=== PATIENT | female | born 1940 | race Hispanic/Latino ===

== ENCOUNTER 2019-01-02 09:30 | Inpatient (IN) | payer MEDICARE ==
[2019-01-02 10:12] LABS: Hematocrit 36.2 % (30.3-42.9); Hemoglobin 12.6 gm/dl (10.1-14.3); Mean Corpuscular HGB Conc 35 % (30-34); Mean Corpuscular Volume 92 fl (79-97); Platelet Count 194 K/mm3 (140-440); Red Blood Count 3.96 M/mm3 (3.65-5.03); Red Cell Distribution Width 13.2 % (13.2-15.2)
[2019-01-02 10:22] LABS: INR 0.87 (0.87-1.13)
--- NOTE | 2019-01-02 10:26 | Emergency Department Report ---
ED Neuro Deficit HPI - General Chief Complaint: Altered Mental Status Stated Complaint: AMS Time Seen by Provider: 01/02/19 10:01 Source: EMS Mode of arrival: Stretcher Limitations: Altered Mental Status - History of Present Illness Initial Comments: Mrs. Osman is a 78 yo female with hx of HTN, TIA, dyslipidemia and seizure disorder who presents with altered mental status and possible seizure. Last known normal 800 AM. Bel, daughter, at bedside provided majority of hx. Daughter noted that she was on the computer, searching the internet. Then she began to wander around the home. She then held on to the counter appearing to be in distress. She was standing but not responsive. Patient then went to the bed. Bel stated that she appeared "catatonic" with frothy sputum at the edge of her mouth. She then developed sonorous respirations. Once she awakened, Mrs. Paulino seemed child-like, confused. Speaking Bel[place]ian although bilingual. Slurred speech noticed by daughter and EMS. BP 210/130. No seizure activity observed by daughter. Patient recently moved from [facility] to be with her daughter in [place]. Daughter Bel is a OR microbiology technician at [employer]. Mrs. Graf does not remember the events which occurred. Medications: Losartan Keppra Amlodipine Toviaz HCTZ Metoprolol Omeprazole -: Sudden, This morning Location: altered Presenting Symptoms: Present: Unable to Speak Clearly Place: home Severity: severe Improves With: none Worsens With: time On Anticoagulants: No Context: sudden onset Associated Symptoms: confusion, syncope Treatments Prior to Arrival: oxygen - Related Data Home Medications: Home Medications Medication Instructions Recorded Confirmed Last Taken Fesoterodine Fumarate ER [Toviaz 8 mg PO DAILY 01/02/19 01/02/19 Unknown ER] Losartan [Cozaar] 50 mg PO QDAY 01/02/19 01/02/19 Unknown Metoprolol Succinate [Toprol Xl] 50 mg PO DAILY 01/02/19 01/02/19 Unknown Omeprazole 20 mg PO DAILY 01/02/19 01/02/19 Unknown amLODIPine [Norvasc] 10 mg PO DAILY 01/02/19 01/02/19 Unknown hydroCHLOROthiazide [HCTZ] 25 mg PO QDAY 01/02/19 01/02/19 Unknown levETIRAcetam [Keppra] 500 mg PO BID 01/02/19 01/02/19 Unknown Allergies/Adverse Reactions: Allergies Allergy/AdvReac Type Severity Reaction Status Date / Time No Known Allergies Allergy Unverified 01/02/19 09:40 ED Review of Systems ROS: Stated complaint: AMS Other details as noted in HPI Comment: All other systems reviewed and negative Constitutional: denies: fever, malaise Cardiovascular: denies: chest pain Gastrointestinal: denies: abdominal pain ED Past Medical Hx - Past Medical History Previous Medical History?: Yes Hx Hypertension: Yes Hx CVA: Yes (TIA) Hx Seizures: Yes Additional medical history: TIA 2015 - Surgical History Additional Surgical History: vein stripping, hemorrhoidectomy, laparoscopic knee surgery - Family History Family history: other (noncontributory) - Social History Smoking Status: Unknown if ever smoked Substance Use Type: None Other Social History: worked until last year, 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 [employer] - Medications Home Medications: Home Medications Medication Instructions Recorded Confirmed Last Taken Type Fesoterodine Fumarate ER [Toviaz 8 mg PO DAILY 01/02/19 01/02/19 Unknown History ER] Losartan [Cozaar] 50 mg PO QDAY 01/02/19 01/02/19 Unknown History Metoprolol Succinate [Toprol Xl] 50 mg PO DAILY 01/02/19 01/02/19 Unknown History Omeprazole 20 mg PO DAILY 01/02/19 01/02/19 Unknown History amLODIPine [Norvasc] 10 mg PO DAILY 01/02/19 01/02/19 Unknown History hydroCHLOROthiazide [HCTZ] 25 mg PO QDAY 01/02/19 01/02/19 Unknown History levETIRAcetam [Keppra] 500 mg PO BID 01/02/19 01/02/19 Unknown History ED Neuro Physical Exam - General Limitations: Altered Mental Status General appearance: alert, in no apparent distress Suspected Stroke: No - Head Head exam: Present: atraumatic, normocephalic - Eye Eye exam: Present: normal appearance - ENT ENT exam: Present: mucous membranes moist - Neck Neck exam: Present: normal inspection, full ROM. Absent: tenderness, meningismus - Respiratory Respiratory exam: Present: normal lung sounds bilaterally. Absent: respiratory distress, wheezes, rales, rhonchi - Cardiovascular Cardiovascular Exam: Present: regular rate, normal rhythm, normal heart sounds. Absent: systolic murmur, diastolic murmur, rubs, gallop - GI/Abdominal GI/Abdominal exam: Present: soft, normal bowel sounds. Absent: distended, tenderness, guarding, rebound - Extremities Exam Extremities exam: Present: normal inspection - Back Exam Back exam: Present: normal inspection - Neurological Exam Neurological exam: Present: alert, oriented X3 - NIHSS Assessment Interval: Baseline 1a. Level of Consciousness: alert/keenly responsive 1b. LOC Questions: answers both correctly 1c. LOC Commands: performs tasks correctly 2. Best Gaze: normal 3. Visual: no visual loss 4. Facial Palsy: normal symmetrical movement 5b. Motor Arm Right: no drift 5a. Motor Arm Left: no drift 6a. Motor Leg Left: no drift 6b. Motor Leg Right: no drift 7. Limb Ataxia: absent 8. Sensory: normal 9. Best Language: no aphasia 10. Dysarthria: normal 11. Extinction/Inattention: no abnormality Total Score: 0 Stroke Severity: No Stroke Symptoms - Psychiatric Psychiatric exam: Present: normal affect, normal mood - Skin Skin exam: Present: warm, dry, intact, normal color. Absent: rash ED Course Vital Signs 01/02/19 01/02/19 01/02/19 09:41 09:51 10:00 Temperature 97.6 F Pulse Rate 103 H 101 H 98 H Respiratory 19 16 13 Rate Blood Pressure 163/91 Blood Pressure 152/100 [Left] O2 Sat by Pulse 95 95 93 Oximetry 01/02/19 01/02/19 01/02/19 10:15 11:01 12:00 Temperature Pulse Rate 93 H Respiratory 16 16 20 Rate Blood Pressure 165/91 155/92 Blood Pressure [Left] O2 Sat by Pulse 99 96 97 Oximetry 01/02/19 01/02/19 13:01 14:01 Temperature Pulse Rate 91 H 88 Respiratory 15 17 Rate Blood Pressure 155/92 155/92 Blood Pressure [Left] O2 Sat by Pulse 93 95 Oximetry - Lab Data Result diagrams: 01/02/19 09:56 01/02/19 09:56 Lab Results 01/02/19 01/02/19 01/02/19 Range/Units 09:56 09:56 09:56 WBC 4.7 (4.5-11.0) K/mm3 RBC 3.96 (3.65-5.03) M/mm3 Hgb 12.6 (10.1-14.3) gm/dl Hct 36.2 (30.3-42.9) % MCV 92 (79-97) fl MCH 32 (28-32) pg MCHC 35 H (30-34) % RDW 13.2 (13.2-15.2) % Plt Count 194 (140-440) K/mm3 Lymph % (Auto) Not Reportable [place] % (Auto) Not Reportable Eos % (Auto) Not Reportable Baso % (Auto) Not Reportable Lymph # Not Reportable [place] # Not Reportable Eos # Not Reportable Baso # Not Reportable Add Manual Diff Complete Total Counted 100 Seg Neuts % (Manual) 79.0 H (40.0-70.0) % Band Neutrophils % 0 % Lymphocytes % (Manual) 14.0 (13.4-35.0) % Reactive Lymphs % (Man) 0 % Monocytes % (Manual) 6.0 (0.0-7.3) % Eosinophils % (Manual) 1.0 (0.0-4.3) % Basophils % (Manual) 0 (0.0-1.8) % Metamyelocytes % 0 % Myelocytes % 0 % Promyelocytes % 0 % Blast Cells % 0 % Nucleated RBC % Not Reportable Seg Neutrophils # Not Reportable Seg Neutrophils # Man 3.7 (1.8-7.7) K/mm3 Band Neutrophils # 0.0 K/mm3 Lymphocytes # (Manual) 0.7 L (1.2-5.4) K/mm3 Abs React Lymphs (Man) 0.0 K/mm3 Monocytes # (Manual) 0.3 (0.0-0.8) K/mm3 Eosinophils # (Manual) 0.0 (0.0-0.4) K/mm3 Basophils # (Manual) 0.0 (0.0-0.1) K/mm3 Metamyelocytes # 0.0 K/mm3 Myelocytes # 0.0 K/mm3 Promyelocytes # 0.0 K/mm3 Blast Cells # 0.0 K/mm3 WBC Morphology Not Reportable Hypersegmented Neuts Not Reportable Hyposegmented Neuts Not Reportable Hypogranular Neuts Not Reportable Smudge Cells Not Reportable Toxic Granulation Not Reportable Toxic Vacuolation Not Reportable Dohle Bodies Not Reportable Pelger-Huet Anomaly Not Reportable Tati Rods Not Reportable Platelet Estimate Consistent w auto Clumped Platelets Not Reportable Plt Clumps, EDTA Not Reportable Large Platelets Not Reportable Giant Platelets Not Reportable Platelet Satelliting Not Reportable Plt Morphology Comment Not Reportable RBC Morphology Not Reportable Dimorphic RBCs Not Reportable Polychromasia Not Reportable Hypochromasia Not Reportable Poikilocytosis 1+ Anisocytosis 1+ Microcytosis Not Reportable Macrocytosis Not Reportable Spherocytes Not Reportable Pappenheimer Bodies Not Reportable Sickle Cells Not Reportable Target Cells Not Reportable Tear Drop Cells Not Reportable Ovalocytes Not Reportable Helmet Cells Not Reportable Bruner-Ralston Bodies Not Reportable [place] Rings Not Reportable Michael Cells Not Reportable Bite Cells Not Reportable Crenated Cell Not Reportable Elliptocytes Not Reportable Acanthocytes (Spur) Not Reportable Rouleaux Not Reportable Hemoglobin C Crystals Not Reportable Schistocytes Not Reportable Malaria parasites Not Reportable Teofilo Bodies Not Reportable Hem Pathologist Commnt No PT 12.4 (12.2-14.9) Sec. INR 0.87 (0.87-1.13) APTT 26.0 (24.2-36.6) Sec. Sodium 143 (137-145) mmol/L Potassium 4.4 (3.6-5.0) mmol/L Chloride 103.2 (98-107) mmol/L Carbon Dioxide 27 (22-30) mmol/L Anion Gap 17 mmol/L BUN 13 (7-17) mg/dL Creatinine 0.8 (0.7-1.2) mg/dL Estimated GFR > 60 ml/min BUN/Creatinine Ratio 16 % Glucose 118 H (65-100) mg/dL Calcium 9.2 (8.4-10.2) mg/dL Total Bilirubin 0.20 (0.1-1.2) mg/dL AST 14 (5-40) units/L ALT 7 (7-56) units/L Alkaline Phosphatase 55 (35-129) units/L Total Creatine Kinase (30-135) units/L Troponin T < 0.010 (0.00-0.029) ng/mL Total Protein 6.2 L (6.3-8.2) g/dL Albumin 3.6 L (3.9-5) g/dL Albumin/Globulin Ratio 1.4 % TSH (0.270-4.200) mlU/mL Urine Color (Yellow) Urine Turbidity (Clear) Urine pH (5.0-7.0) Ur Specific [place] (1.003-1.030) Urine Protein (Negative) mg/dL Urine Glucose (UA) (Negative) mg/dL Urine Ketones (Negative) mg/dL Urine Blood (Negative) Urine Nitrite (Negative) Urine Bilirubin (Negative) Urine Urobilinogen (<2.0) mg/dL Ur Leukocyte Esterase (Negative) Urine WBC (Auto) (0.0-6.0) /HPF Urine RBC (Auto) (0.0-6.0) /HPF U Epithel Cells (Auto) (0-13.0) /HPF Urine Mucus /HPF Salicylates (2.8-20.0) mg/dL Urine Opiates Screen Urine Methadone Screen Acetaminophen (10.0-30.0) ug/mL Ur Barbiturates Screen Ur Phencyclidine Scrn Ur Amphetamines Screen U Benzodiazepines Scrn Urine Cocaine Screen U Marijuana (THC) Screen Drugs of Abuse Note 01/02/19 01/02/19 01/02/19 Range/Units 09:56 09:56 09:56 WBC (4.5-11.0) K/mm3 RBC (3.65-5.03) M/mm3 Hgb (10.1-14.3) gm/dl Hct (30.3-42.9) % MCV (79-97) fl MCH (28-32) pg MCHC (30-34) % RDW (13.2-15.2) % Plt Count (140-440) K/mm3 Lymph % (Auto) [place] % (Auto) Eos % (Auto) Baso % (Auto) Lymph # [place] # Eos # Baso # Add Manual Diff Total Counted Seg Neuts % (Manual) (40.0-70.0) % Band Neutrophils % % Lymphocytes % (Manual) (13.4-35.0) % Reactive Lymphs % (Man) % Monocytes % (Manual) (0.0-7.3) % Eosinophils % (Manual) (0.0-4.3) % Basophils % (Manual) (0.0-1.8) % Metamyelocytes % % Myelocytes % % Promyelocytes % % Blast Cells % % Nucleated RBC % Seg Neutrophils # Seg Neutrophils # Man (1.8-7.7) K/mm3 Band Neutrophils # K/mm3 Lymphocytes # (Manual) (1.2-5.4) K/mm3 Abs React Lymphs (Man) K/mm3 Monocytes # (Manual) (0.0-0.8) K/mm3 Eosinophils # (Manual) (0.0-0.4) K/mm3 Basophils # (Manual) (0.0-0.1) K/mm3 Metamyelocytes # K/mm3 Myelocytes # K/mm3 Promyelocytes # K/mm3 Blast Cells # K/mm3 WBC Morphology Hypersegmented Neuts Hyposegmented Neuts Hypogranular Neuts Smudge Cells Toxic Granulation Toxic Vacuolation Dohle Bodies Pelger-Huet Anomaly Tati Rods Platelet Estimate Clumped Platelets Plt Clumps, EDTA Large Platelets Giant Platelets Platelet Satelliting Plt Morphology Comment RBC Morphology Dimorphic RBCs Polychromasia Hypochromasia Poikilocytosis Anisocytosis Microcytosis Macrocytosis Spherocytes Pappenheimer Bodies Sickle Cells Target Cells Tear Drop Cells Ovalocytes Helmet Cells Bruner-Ralston Bodies [place] Rings [place] Cells Bite Cells Crenated Cell Elliptocytes Acanthocytes (Spur) Rouleaux Hemoglobin C Crystals Schistocytes Malaria parasites Teofilo Bodies Hem Pathologist Commnt PT (12.2-14.9) Sec. INR (0.87-1.13) APTT (24.2-36.6) Sec. Sodium (137-145) mmol/L Potassium (3.6-5.0) mmol/L Chloride (98-107) mmol/L Carbon Dioxide (22-30) mmol/L Anion Gap mmol/L BUN (7-17) mg/dL Creatinine (0.7-1.2) mg/dL Estimated GFR ml/min BUN/Creatinine Ratio % Glucose (65-100) mg/dL Calcium (8.4-10.2) mg/dL Total Bilirubin (0.1-1.2) mg/dL AST (5-40) units/L ALT (7-56) units/L Alkaline Phosphatase (35-129) units/L Total Creatine Kinase 114 (30-135) units/L Troponin T (0.00-0.029) ng/mL Total Protein (6.3-8.2) g/dL Albumin (3.9-5) g/dL Albumin/Globulin Ratio % TSH 5.700 H (0.270-4.200) mlU/mL Urine Color (Yellow) Urine Turbidity (Clear) Urine pH (5.0-7.0) Ur Specific [place] (1.003-1.030) Urine Protein (Negative) mg/dL Urine Glucose (UA) (Negative) mg/dL Urine Ketones (Negative) mg/dL Urine Blood (Negative) Urine Nitrite (Negative) Urine Bilirubin (Negative) Urine Urobilinogen (<2.0) mg/dL Ur Leukocyte Esterase (Negative) Urine WBC (Auto) (0.0-6.0) /HPF Urine RBC (Auto) (0.0-6.0) /HPF U Epithel Cells (Auto) (0-13.0) /HPF Urine Mucus /HPF Salicylates (2.8-20.0) mg/dL Urine Opiates Screen Urine Methadone Screen Acetaminophen < 5.0 L (10.0-30.0) ug/mL Ur Barbiturates Screen Ur Phencyclidine Scrn Ur Amphetamines Screen U Benzodiazepines Scrn Urine Cocaine Screen U Marijuana (THC) Screen Drugs of Abuse Note 01/02/19 01/02/19 01/02/19 Range/Units 09:56 12:05 12:05 WBC (4.5-11.0) K/mm3 RBC (3.65-5.03) M/mm3 Hgb (10.1-14.3) gm/dl Hct (30.3-42.9) % MCV (79-97) fl MCH (28-32) pg MCHC (30-34) % RDW (13.2-15.2) % Plt Count (140-440) K/mm3 Lymph % (Auto) [place] % (Auto) Eos % (Auto) Baso % (Auto) Lymph # [place] # Eos # Baso # Add Manual Diff Total Counted Seg Neuts % (Manual) (40.0-70.0) % Band Neutrophils % % Lymphocytes % (Manual) (13.4-35.0) % Reactive Lymphs % (Man) % Monocytes % (Manual) (0.0-7.3) % Eosinophils % (Manual) (0.0-4.3) % Basophils % (Manual) (0.0-1.8) % Metamyelocytes % % Myelocytes % % Promyelocytes % % Blast Cells % % Nucleated RBC % Seg Neutrophils # Seg Neutrophils # Man (1.8-7.7) K/mm3 Band Neutrophils # K/mm3 Lymphocytes # (Manual) (1.2-5.4) K/mm3 Abs React Lymphs (Man) K/mm3 Monocytes # (Manual) (0.0-0.8) K/mm3 Eosinophils # (Manual) (0.0-0.4) K/mm3 Basophils # (Manual) (0.0-0.1) K/mm3 Metamyelocytes # K/mm3 Myelocytes # K/mm3 Promyelocytes # K/mm3 Blast Cells # K/mm3 WBC Morphology Hypersegmented Neuts Hyposegmented Neuts Hypogranular Neuts Smudge Cells Toxic Granulation Toxic Vacuolation Dohle Bodies Pelger-Huet Anomaly Tati Rods Platelet Estimate Clumped Platelets Plt Clumps, EDTA Large Platelets Giant Platelets Platelet Satelliting Plt Morphology Comment RBC Morphology Dimorphic RBCs Polychromasia Hypochromasia Poikilocytosis Anisocytosis Microcytosis Macrocytosis Spherocytes Pappenheimer Bodies Sickle Cells Target Cells Tear Drop Cells Ovalocytes Helmet Cells Bruner-Ralston Bodies [place] Rings [place] Cells Bite Cells Crenated Cell Elliptocytes Acanthocytes (Spur) Rouleaux Hemoglobin C Crystals Schistocytes Malaria parasites Teofilo Bodies Hem Pathologist Commnt PT (12.2-14.9) Sec. INR (0.87-1.13) APTT (24.2-36.6) Sec. Sodium (137-145) mmol/L Potassium (3.6-5.0) mmol/L Chloride (98-107) mmol/L Carbon Dioxide (22-30) mmol/L Anion Gap mmol/L BUN (7-17) mg/dL Creatinine (0.7-1.2) mg/dL Estimated GFR ml/min BUN/Creatinine Ratio % Glucose (65-100) mg/dL Calcium (8.4-10.2) mg/dL Total Bilirubin (0.1-1.2) mg/dL AST (5-40) units/L ALT (7-56) units/L Alkaline Phosphatase (35-129) units/L Total Creatine Kinase (30-135) units/L Troponin T (0.00-0.029) ng/mL Total Protein (6.3-8.2) g/dL Albumin (3.9-5) g/dL Albumin/Globulin Ratio % TSH (0.270-4.200) mlU/mL Urine Color Yellow (Yellow) Urine Turbidity Clear (Clear) Urine pH 7.0 (5.0-7.0) Ur Specific [place] 1.011 (1.003-1.030) Urine Protein <15 mg/dl (Negative) mg/dL Urine Glucose (UA) Neg (Negative) mg/dL Urine Ketones Neg (Negative) mg/dL Urine Blood Neg (Negative) Urine Nitrite Neg (Negative) Urine Bilirubin Neg (Negative) Urine Urobilinogen < 2.0 (<2.0) mg/dL Ur Leukocyte Esterase Tr (Negative) Urine WBC (Auto) 1.0 (0.0-6.0) /HPF Urine RBC (Auto) < 1.0 (0.0-6.0) /HPF U Epithel Cells (Auto) 4.0 (0-13.0) /HPF Urine Mucus Few /HPF Salicylates < 0.3 L (2.8-20.0) mg/dL Urine Opiates Screen Presumptive negative Urine Methadone Screen Presumptive negative Acetaminophen (10.0-30.0) ug/mL Ur Barbiturates Screen Presumptive negative Ur Phencyclidine Scrn Presumptive negative Ur Amphetamines Screen Presumptive negative U Benzodiazepines Scrn Presumptive negative Urine Cocaine Screen Presumptive negative U Marijuana (THC) Screen Presumptive negative Drugs of Abuse Note Disclamer 01/02/19 10:56 EKG obtained 10:50 rate 95 bpm NSR nl rate nl axis nl intervals no ST-T signs of ischemia no ST elevation - Radiology Data Radiology results: report reviewed, image reviewed CT head no acute process xr chest: cardiomegaly no acute process - Medical Decision Making Mrs. Osman presents with altered mental status, unresponsive episode including slurred speech and confusion. DDX: seizure, TIA, arrhythmia, bacteremia/sepsis, hypertensive encephalopahthy Provided IV keppra load in ED for possible seizure Due to multiple possible causes and rapidly improving symptoms, TPA is not indicated on this presentation. Admitted to hospitalist service for further evaluation and treatment. - Thrombolytic Inclusion/Exclusion Thrombolytic Contraindications: Rapidily Improving s/s Critical care attestation.: If time is entered above; I have spent that time in minutes in the direct care of this critically ill patient, excluding procedure time. ED Disposition Clinical Impression: Acute encephalopathy, History of seizure, History of TIA (transient ischemic attack) Disposition: [id number] OP ADMIT IP TO THIS HOSP Is pt being admited?: Yes Does the pt Need Aspirin: No Condition: Stable
[2019-01-02] MEDS ORDERED: KEPPRA 1,000 MG/NS 0.75% 100ML 1,000 MG/100 ML BAG IV ONE (10:27)
[2019-01-02 10:39] LABS: Alanine Aminotransferase 7 units/L (7-56); Albumin 3.6 g/dL (3.9-5); BUN/Creatinine Ratio 16; Blood Urea Nitrogen 13 mg/dL (7-17); Calcium 9.2 mg/dL (8.4-10.2); Hemolysis Index 7
[2019-01-02 12:30] LABS: Bilirubin,Urine NEG (Negative); Blood,Urine NEG (Negative); Color,Urine Yellow (Yellow); Mucus,Urine FEW /HPF; Protein,Urine <15 mg/dL mg/dL (Negative); RBC,Urine < 1.0 /HPF (0.0-6.0); Urobilinogen,Urine < 2.0 mg/dL (<2.0)
[2019-01-02 12:52] LABS: Amphetamine Screen,Urine PRESUMPTIVE NEGATIVE; Benzodiazepines Screen,Urine PRESUMPTIVE NEGATIVE; Cannabinoid Screen,Urine PRESUMPTIVE NEGATIVE; Cocaine Screen,Urine PRESUMPTIVE NEGATIVE; Methadone Screen,Urine PRESUMPTIVE NEGATIVE; Opiate Screen,Urine PRESUMPTIVE NEGATIVE
--- NOTE | 2019-01-02 12:53 | History and Physical Report ---
History of Present Illness Chief complaint: She was confused History of present illness: 78 YO Female with HTN, CVA, HLD, Obesity, Seizure Disorder presents to ED for evaluation. Pt is confused and unable to provide detailed history. Pt hsitory taken from ED Staff, EMS, and Family. As per daughter, the patient was in her usual state of health around 0800hrs but developed sudden onset of confusion and weakness, and was unable to respond to questions. Pt went to bed, and awoke later in the morning and was found to have worsening confusion, inability, and drooling from her mouth. Upon waking, the patient seemed to have worsening confusion, and unable to speak. EMS was notified, and upon arrival the patient was found to be in distress with neurologic deficit, and blood pressure of 210/130. A code stroke was called and the patient was transported to [facility] for further care and evaluation. Pt seen and evaluated in ED and found to have CVA, Encephalopathy. Pt was admitted to telemetry, and initiated on CVA protocol. No further history obtainable. Past History Past Medical History: hypertension, hyperlipidemia, seizures, stroke Past Surgical History: total knee replacement, Other (hemmorhoidectomy) Social history: , lives with family. denies: smoking, alcohol abuse, prescription drug abuse Family history: hypertension Medications and Allergies Allergies Allergy/AdvReac Type Severity Reaction Status Date / Time No Known Allergies Allergy Unverified 01/02/19 09:40 Home Medications Medication Instructions Recorded Confirmed Last Taken Type Fesoterodine Fumarate ER [Toviaz 8 mg PO DAILY 01/02/19 01/02/19 Unknown History ER] Losartan [Cozaar] 50 mg PO QDAY 01/02/19 01/02/19 Unknown History Metoprolol Succinate [Toprol Xl] 50 mg PO DAILY 01/02/19 01/02/19 Unknown History Omeprazole 20 mg PO DAILY 01/02/19 01/02/19 Unknown History amLODIPine [Norvasc] 10 mg PO DAILY 01/02/19 01/02/19 Unknown History hydroCHLOROthiazide [HCTZ] 25 mg PO QDAY 01/02/19 01/02/19 Unknown History levETIRAcetam [Keppra] 500 mg PO BID 01/02/19 01/02/19 Unknown History Review of Systems ROS unobtainable: due to mental status Exam - Constitutional Vitals: Temp Pulse Resp BP Pulse Ox 97.6 F 101 H 16 152/100 95 01/02/19 09:51 01/02/19 09:51 01/02/19 09:51 01/02/19 09:51 01/02/19 09:51 General appearance: Present: mild distress - EENT Eyes: Present: PERRL ENT: hearing intact, clear oral mucosa - Neck Neck: Present: supple, normal ROM - Respiratory Respiratory effort: labored Respiratory: bilateral: diminished, rhonchi - Cardiovascular Heart Sounds: Present: S1 & S2. Absent: rub, click - Extremities Extremities: pulses symmetrical, No edema Peripheral Pulses: within normal limits - Abdominal General gastrointestinal: Present: soft, non-tender, non-distended, normal bowel sounds Female genitourinary: Present: normal - Musculoskeletal Musculoskeletal: generalized weakness - Psychiatric Psychiatric: no appropriate mood/affect, no intact judgment & insight, no memory intact - Neurologic Neurologic: CNII-XII intact, moves all extremities, no gait normal Results - Labs CBC & Chem 7: 01/02/19 09:56 01/02/19 09:56 Labs: Abnormal lab results 01/02/19 01/02/19 01/02/19 Range/Units 09:56 09:56 09:56 MCHC 35 H (30-34) % Glucose 118 H (65-100) mg/dL Total Protein 6.2 L (6.3-8.2) g/dL Albumin 3.6 L (3.9-5) g/dL TSH 5.700 H (0.270-4.200) mlU/mL Salicylates (2.8-20.0) mg/dL Acetaminophen (10.0-30.0) ug/mL 01/02/19 01/02/19 Range/Units 09:56 09:56 MCHC (30-34) % Glucose (65-100) mg/dL Total Protein (6.3-8.2) g/dL Albumin (3.9-5) g/dL TSH (0.270-4.200) mlU/mL Salicylates < 0.3 L (2.8-20.0) mg/dL Acetaminophen < 5.0 L (10.0-30.0) ug/mL Assessment and Plan - Patient Problems (1) CVA (cerebral vascular accident) Current Visit: Yes Status: Suspected Qualifiers: Precerebral and cerebral artery: posterior cerebral artery Plan to address problem: Admit to Telemetry: CT Head, MRI Brain, MRA Brain, Echo, Carotid Doppler, neuro checks, antiplatelet therapy, lipid panel, statin therapy, PT/OT/ Speech Th erapy, Case management consulted for d/c Planning. (2) Encephalopathy Current Visit: Yes Status: Acute Plan to address problem: CT head, neuro checks, seizure precautions, aspiration precautions, fall pr ecautions. (3) Seizure disorder Current Visit: Yes Status: Acute Plan to address problem: Keppra level, resume prehospital therapy, supportive care, seizure precautions. (4) DVT prophylaxis Current Visit: Yes Status: Acute Plan to address problem: SCD to BLE while in bed.
[2019-01-02] MEDS ORDERED: TYLENOL PO PRN (12:54)
[2019-01-02] MEDS ORDERED: SODIUM CHLORIDE FLUSH SYRINGE 10 ML IV PRN (12:54)
[2019-01-02] MEDS ORDERED: MILK OF MAGNESIA PO PRN (12:54)
[2019-01-02] MEDS ORDERED: PROVENTIL IH PRN (12:54)
[2019-01-02] MEDS ORDERED: DULCOLAX PR PRN (12:54)
[2019-01-02] MEDS ORDERED: PHENERGAN PR PRN (12:54)
[2019-01-02] MEDS ORDERED: REGLAN PO PRN (12:54)
[2019-01-02] MEDS ORDERED: ZOFRAN IV PRN (12:54)
[2019-01-02 12:59] LABS: Basophils % (Manual) 0 % (0.0-1.8); Total Cells Counted 100
[2019-01-02 13:00] LABS: Anisocytosis 1+; Platelet Estimate Consistent w Auto; Poikilocytosis 1+
--- NOTE | 2019-01-02 14:20 | XRay Report ---
FINAL REPORT EXAM: XR CHEST 1V AP HISTORY: ams COMPARISON: None. TECHNIQUE: Single frontal view of the chest FINDINGS: The cardiomediastinal silhouette is normal in appearance. The lungs are clear without focal consolidation. There is no pleural effusion or pneumothorax. There is no acute soft tissue or osseous abnormality. IMPRESSION: No acute cardiopulmonary disease.
--- NOTE | 2019-01-02 14:24 | Cat Scan Report ---
CT HEAD WITHOUT CONTRAST: HISTORY: Altered mental status. TECHNIQUE: Sequential 2.5mm CT images. COMPARISON: none. FINDINGS: Cerebral Parenchyma: Moderate nonspecific chronic white matter changes are identified. Chronic focal cortical infarct in the left parietal lobe measures 2.2 cm. The remainder of the cerebral hemispheres are within normal limits. Cerebellum: Within normal limits. The cerebellar tonsils are cut off the [id number]. Brainstem: Within normal limits. Ventricles: Normal. Sella: Normal. Extra-axial spaces: 1.1 cm extra-axial calcification is identified in the left parietal region which probably represents a small meningioma. Basal Cisterns: Normal. Intracranial Hemorrhage: None. Midline Shift: None. Calvarium: Normal. Sinuses: Normal. Mastoid Air Cells: Normal. Visualized Orbits: Normal. IMPRESSION: No acute intracranial process. Nonspecific chronic white matter changes. Chronic cortical infarct in the left parietal lobe. Small left parietal meningioma.
--- NOTE | 2019-01-02 14:51 | Vascular Lab Report ---
FINAL REPORT EXAM: VL CAROTID DUPLEX BILAT HISTORY: stroke COMPARISON: None. TECHNIQUE: Duplex Doppler ultrasound of the carotid arteries was performed. FINDINGS: There is a small amount of heterogeneous plaque in the right internal carotid artery, causing less th an 50 percent stenosis. The right common carotid artery and external carotid artery are patent. There is antegrade flow in the right vertebral artery. There is a small amount of heterogeneous plaque in the left internal carotid artery, causing less liliana n 50 percent stenosis. The left common carotid artery and external carotid artery are patent. There i s antegrade flow in the left vertebral artery. Peak systolic velocities (cm/sec) are as follows: Right common carotid artery: 84.4 Right internal carotid artery: 88.2 Right external carotid artery: 58.7 Left common carotid artery: 90.7 Left internal carotid artery: 109.9 Left external carotid artery: 66.6 Peak systolic velocity ratio between the right internal carotid artery and the right common carotid a rtery: 1.05 Peak systolic velocity ratio between the left internal carotid artery and left common carotid artery: 1.21 IMPRESSION: Heterogeneous plaque in the bilateral internal carotid arteries, causing less than 50 percent stenosi s.
[2019-01-02] MEDS ORDERED: ATIVAN IV ONE (15:28)
[2019-01-02] MEDS ORDERED: ATIVAN ONE (15:34)
--- NOTE | 2019-01-02 18:52 | Magnetic Resonance Report ---
FINAL REPORT EXAM: MR BRAIN WO CON HISTORY: strokeER inpatient TECHNIQUE: T1 and T2 weighted sagittal, axial, coronal and diffusion-weighted images of the brain we re obtained. Comparison MRA brain also performed today FINDINGS: There are areas of abnormal signal in the left posterior temporal and parietal lobe cortex most cons istent with the appearance of sequela of previous hemorrhages. There appears to be associated encephalomalacia. There is a small rounded focus of diffusion abnormality in the left frontal parietal convexity which may represent a small focus of acute cortical infarct this region. There is no evidence of significant mass effect. T2 signal abnormality in the subcortical and deep white matter of the cerebral hemispheres bilaterall y most likely represent areas of chronic post ischemic demyelination/small vessel disease. There are chronic lacunar infarcts in the left posterior putamen and left periatrial white matter. There is T2 signal abnormality in the basal ganglia and thalami bilaterally also suggestive of chroni c post ischemic change. The ventricles are normal size. Expected flow void is demonstrated within the major intracranial vessels. The extracranial structures are notable for mild to moderate bilateral ethmoid sinus mucosal thickeni ng. The craniocervical junction is unremarkable in appearance. IMPRESSION: 1. Evidence of sequela of previous hemorrhages in the left posterior temporal and parietal lobes. 2. Chronic post ischemic change in the subcortical and deep white matter of the cerebral hemispheres bilaterally and in the basal ganglia and thalami bilaterally. 3. Small focus of diffusion abnormality in the left parietal cortex which may represent a small focus of acute cortical infarct. Comparison with previous imaging studies is recommended.
--- NOTE | 2019-01-02 18:55 | Magnetic Resonance Report ---
FINAL REPORT EXAM: MR MRA/MRV HEAD WO CON HISTORY: strokeER inpatient TECHNIQUE: 3D [id number] MRA of the brain with maximum intensity projection images obtained. Comparison: MRI brain also performed today FINDINGS: Visualization detail in portions of the brain is limited by motion artifact. The study remains of shailesh gnostic quality. There is normal enhancement of the major intracranial arteries without evidence of occlusion, hemodyn amically significant stenosis or aneurysm. The predominant supply to the posterior cerebral arteries bilaterally is from the internal carotid ar teries via the posterior communicating arteries (normal variant). IMPRESSION: 1. Study somewhat degraded by motion artifact. 2. No evidence of occlusion, hemodynamically significant stenosis or aneurysm of the major intracrani al arteries.
[2019-01-03] MEDS ORDERED: ASPIRIN PO SCH (10:00)
--- NOTE | 2019-01-03 11:45 | Discharge Summary ---
Providers - Providers Date of Admission: 01/02/19 12:54 Date of discharge: 01/03/19 Attending physician: RANDA ROMAN 01/02/19 12:54 Consult to Case Management [CONS] Routine Services Needed at Discharge: Instructor [employer] Notified:: cm notified Additional Physician Instructions: D/C Planning/ Rehab/Placement Occupational Therapy Evaluate and Treat [CONS] Routine Comment: Reason For Exam: Neuro deficits Physical Therapy Evaluation and Treat [CONS] Routine Comment: Reason For Exam: Neuro deficits 01/02/19 12:55 Speech Therapy Evaluation and Treat [CONS] Routine Reason For Exam: swallow eval 01/02/19 18:57 Consult to Physician [CONS] Routine Comment: Consulting Provider: ALEXANDER GARIBAY Physician Instructions: Reason For Exam: cva Hospitalization Condition: Stable Hospital course: Patient is a 78 YO Female with HTN, CVA, HLD, Obesity, Seizure Disorder presents to ED for evaluation. Pt is confused and unable to provide detailed history. Pt hsitory taken from ED Staff, EMS, and Family. As per daughter, the patient was in her usual state of health around 0800hrs but developed sudden onset of confusion and weakness, and was unable to respond to questions. Pt went to bed, and awoke later in the morning and was found to have worsening confusion, inability, and drooling from her mouth. Upon waking, the patient seemed to have worsening confusion, and unable to speak. EMS was notified, and upon arrival the patient was found to be in distress with neurologic deficit, and blood pressure of 210/130. A code stroke was called and the patient was transported to [facility] for further care and evaluation. 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 Acute metabolic Encephalopathy, poa Current Visit: Yes Status: Acute Plan to address problem: CT head, neuro checks, seizure precautions, aspiration precautions, fall precautions. Seizure disorder not taking her medication as instructed per daughter at bedside DVT prophylaxis Current Visit: Yes Status: Acute Plan to address problem: SCD to BLE while in bed. Disposition: DC-01 TO HOME OR SELFCARE Time spent for discharge: 31 minutes Core Measure Documentation - Palliative Care Palliative Care/ Comfort Measures: Not Applicable - Core Measures Any of the following diagnoses?: none - VTE Discharge Requirements Deep Vein Thrombosis/Pulmonary Embolism Present on Admission: No Has pt received <5 days of overlap therapy or INR<2.0: No Anticoagulant overlap therapy prescribed at discharge: No Contraindication No Overlap Therapy order at DC: Not Indicated Exam - Physical Exam Narrative exam: Gen: WDWN, NAD, Awake, Alert, Orientated HEENT: NCAT, EOMI, PERRL, OP Clear Neck: supple, no adenopathy, no thyromegaly, no JVD CVS/Heart: RRR, normal S1S2, pulses present bilaterally Chest/Lungs: CTA B, Symmetrical chest expansion, good air entry bilaterally GI/Abdomen: soft, NTND, good bowel sounds, no guarding or rebound /Bladder: no suprapubic tenderness, no CVA or paraspinal tenderness Extermity/Skin: no c/c/e, no obvious rash MSK: FROM x 4 Neuro: CN 2-12 grossly intact, past pointing, Psych: calm - Constitutional Vitals: Temp Pulse Resp BP Pulse Ox 97.4 F L 69 18 153/75 91 01/03/19 07:42 01/03/19 03:57 01/03/19 07:42 01/03/19 07:42 01/03/19 03:57 Plan Activity: up only with assistance, fall precautions, other (no strenous activity unless cleared by PCP) Diet: low salt Follow up with: [facility] [Other] - 7 Days ROB PENN MD [Staff Physician] - 7 Days STEVEN NUNEZ MD [Staff Physician] - 7 Days Prescriptions: RX: levETIRAcetam [Keppra] 500 mg PO BID #60 tablet
[2019-01-03 12:11] VITALS: BP 155/80
--- NOTE | 2019-01-03 17:46 | Event Note ---
Date: 01/03/19 Pt discharged before I was able to see her.
== END 2019-01-03 16:05 | disposition home or self-care (01) | DRG 72 ==
LOC: ED 09:30 → 4A 12:54
PROVIDERS: ADMIT Internal Medicine; ATTEND Internal Medicine
DX: G93.41 Metabolic encephalopathy (principal); I10 Essential (primary) hypertension; E78.5 Hyperlipidemia, unspecified; E66.9 Obesity, unspecified; G40.909 Epilepsy, unspecified, not intractable, without status epilepticus; Z96.659 Presence of unspecified artificial knee joint; Z68.34 Body mass index [BMI] 34.0-34.9, adult; Z82.49 Family history of ischemic heart disease and other diseases of the circulatory system; Z79.899 Other long term (current) drug therapy; I69.30 Unspecified sequelae of cerebral infarction
CPT/HCPCS: 36415; 70450; 70544; 70551; 71045; 80053; 80177; 80307; 80320; 81001; 82550; 84443; 84484; 85007; 85025; 85610; 85730; 93005; 93010; 93306; 93880; G0378; A9270-GY; G0480; J1953; J2060